=== PATIENT | male | born 2000 | race Caucasian/White ===

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

== ENCOUNTER 2022-01-12 23:07 | Emergency (ER) | payer OTHER, MEDICAID, SELFPAY ==
[2022-01-12 23:14] VITALS: BP 117/67; PULSE 123; RESP 20; TEMP 37.2; O2SAT 97; BMI 26.6
[2022-01-12 23:25] VITALS: PULSE 119; O2SAT 96
[2022-01-12 23:26] VITALS: BP 115/63; PULSE 116; O2SAT 97
[2022-01-12 23:30] VITALS: BP 110/62; PULSE 117; O2SAT 98
[2022-01-13] VITALS: BP 105/63; PULSE 101; O2SAT 96
[2022-01-13 00:30] VITALS: BP 108/62; PULSE 101; O2SAT 96
--- NOTE | 2022-01-13 00:30 | PC.NURSE ---
Resting quietly on stretcher in NAD - no needs voiced - PWD with respirations equal and unlabored bilaterally
[2022-01-13 00:34] LABS: Influenza A - CEPHEID Flu A POSITIVE (NEGATIVE); Influenza B - CEPHEID Flu B NEGATIVE (NEGATIVE); Respiratory Syncytial Virus Negative (Negative)
[2022-01-13 00:40] LABS: COVID-19 CEPHEID 4-PLEX PCR Negative (Negative)
--- NOTE | 2022-01-13 01:05 | ED_ITS ---
HPI - Back Pain/Injury General Chief Complaint: Back Pain/Injury Stated Complaint: back hurts, n/v bodyaches Time Seen by Provider: 01/13/22 00:16 Source: patient History of Present Illness HPI Narrative: Patient is a 21-year-old male transitioning to female presenting today with body aches and some nausea and back pain. Some mild sore throat. No significant cough no headache. Currently afebrile. No abdominal pain. Related Data Previous Rx's Medication Instructions Recorded ondansetron 4 mg disintegrating 4 mg PO Q6H PRN nausea and 01/20/21 tablet vomiting #10 tabs ketorolac 10 mg tablet 10 mg PO Q6H PRN pain #14 tabs 01/21/21 ondansetron HCl 4 mg tablet 4 mg PO Q8H PRN nausea and 01/21/21 (Zofran) vomiting #20 tabs Allergies Allergy/AdvReac Type Severity Reaction Status Date / Time No Known Drug Allergies Allergy Verified 01/12/19 15:37 Review of Systems Review of Systems Narrative: GENERAL: See HPI HEENT: Denies throat pain RESPIRATORY: Denies dyspnea, cough, wheezing CARDIOVASCULAR: Denies chest pain, palpitations GASTROINTESTINAL: Denies nausea, vomiting MUSCULOSKELETAL: See HPI SKIN: No rash, no laceration, no pruritus NEUROLOGIC: Denies weakness, dizziness, headache, numbness 8 point review of systems is negative except for those stated above and HPI Patient History Social History Smoking Status: Never smoker Smoking Status: Never smoker alcohol intake frequency: a few times a week Substance Use Type: does not use Exam Initial Vital Signs Initial Vital Signs: Vital Signs Temperature 99 F 01/12/22 23:14 Pulse Rate 123 H 01/12/22 23:14 Respiratory Rate 20 01/12/22 23:14 Blood Pressure 117/67 01/12/22 23:14 Pulse Oximetry 97 01/12/22 23:14 Oxygen Delivery Method 01/12/22 23:14 GENERAL: Alert well-appearing 21-year-old HEENT: Head atraumatic,EOMI, pupils reactive, face symmetric, negative Kernig and Brudzinski, no meningeal signs CARDIOVASCULAR: Regular rate and rhythm without murmurs, rubs or gallops. RESPIRATORY: Breath sounds equal bilaterally, no wheezes rales or rhonchi. ABDOMEN: Soft, nontender. Normoactive bowel sounds all 4 quadrants. No guarding or rebound. EXTREMITIES: Normal range of motion, no clubbing or edema. Neurovascularly intact NEUROLOGICAL: Alert and oriented x4. SKIN: Warm, dry, no laceration, no petechiae, no rashes or lesions. Course Vital Signs Vital signs: Vital Signs - 8 hr 01/12/22 23:14 01/12/22 23:25 01/12/22 23:26 Temperature 99 F Pulse Rate 123 H 119 H Respiratory Rate 20 Blood Pressure 117/67 115/63 Pulse Oximetry 97 96 Oxygen Delivery Method Room Air 01/12/22 23:26 01/12/22 23:30 01/12/22 23:30 Temperature Pulse Rate 116 H 117 H Respiratory Rate Blood Pressure 110/62 Pulse Oximetry 97 98 Oxygen Delivery Method 01/13/22 00:00 01/13/22 00:00 01/13/22 00:30 Temperature Pulse Rate 101 H Respiratory Rate Blood Pressure 105/63 108/62 Pulse Oximetry 96 Oxygen Delivery Method 01/13/22 00:30 Temperature Pulse Rate 101 H Respiratory Rate Blood Pressure Pulse Oximetry 96 Oxygen Delivery Method MDM - Back Pain/Injury Lab Data Labs: Lab Results 01/12/22 Range/Units 11:25 SARS-CoV-2 (PCR) Negative (Negative) Influenza A (RT-PCR) Flu a positive H (NEGATIVE) Influenza B (RT-PCR) Flu b negative (NEGATIVE) RSV (PCR) Negative (Negative) MDM Narrative Medical decision making narrative: Patient overall appears well. No specific spine tenderness or meningeal signs. Diskitis is considered however unlikely at this time. I think body aches are likely related to influenza. Afebrile here in the ED mild tachycardia initially but improved without any sort of intervention. At this time recommend supporti ve care only and return if things are getting worse. Discharge Plan Departure Patient Disposition: Home Clinical Impression: Influenza A Activity Restrictions/Additional Instructions: *You have been diagnosed with influenza a *What to do: Stay hydrated with fluids. Treat fever if needed. *Continue to take medications as directed Motrin 600 mg every 6 hours if needed for [id number] pain/fever Tylenol 1000 mg every 6 hours if needed for [id number] pain/fever *Follow up with your primary care provider in 2-3 days or call [phone] *Return to ER if you should have increasing shortness of breath fever not controlled not drinking fluids or any new, worsening or concerning symptoms Prescriptions: No Action ondansetron 4 mg tablet,disintegrating 4 mg PO Q6H PRN (Reason: nausea and vomiting) Qty: 10 0RF ondansetron HCl [Zofran] 4 mg tablet 4 mg PO Q8H PRN (Reason: nausea and vomiting) Qty: 20 0RF ketorolac 10 mg tablet 10 mg PO Q6H PRN (Reason: pain) Qty: 14 0RF Referrals: Leti Cullen ND [Primary Care Provider] - Visit Report Forms: Patient Portal/API
== END 2022-01-13 01:21 | disposition home or self-care (01) ==
PROVIDERS: Emergency Provider Emergency Medicine; PCP Naturopath
DX: J10.1 Influenza due to other identified influenza virus with other respiratory manifestations (principal); R11.0 Nausea; Z20.822 Contact with and (suspected) exposure to COVID-19
CPT/HCPCS: 0241U; 99282

== ENCOUNTER → 2022-02-14 14:18 | Outpatient (CLI) | payer OTHER, MEDICAID, SELFPAY ==
[2022-02-14 15:39] LABS: Alanine Aminotransferase 117 IU/L (<50); Albumin 4.8 g/dL (3.5-5.0); Albumin Globulin Ratio 1.3 (1.0-2.8); Alkaline Phosphatase 74 U/L (38-126); Aspartate Aminotransferase 52 IU/L (17-59); BUN Creatinine Ratio 21.3 (6-22); Bilirubin Total 1.3 mg/dL (0.2-1.3); Blood Urea Nitrogen 17 mg/dL (9-20); Calcium 9.2 mg/dL (8.4-10.2); Carbon Dioxide 29 mmol/L (22-32); Chloride 98 mmol/L (98-107); Cholesterol 197 mg/dL (140-199); Estimated Glomerular Filt Rate > 60 mL/min (>60); Globulin 3.6 g/dL (1.7-4.1); Glucose 96 mg/dL (70-100); HDL Cholesterol 59 mg/dL (40-60); HEMOLYSIS < 15 (0-50); LDL Cholesterol Calculated 123 mg/dL (<100); Sodium 137 mmol/L (137-145); Total Protein 8.4 g/dL (6.3-8.2); Triglycerides 76 mg/dL (35-150)
[2022-02-14 15:55] LABS: Prolactin 12.4 ng/mL (3.7-17.9)
[2022-02-14 17:47] LABS: Estradiol, Total 294.6 pg/mL
[2022-02-21 09:27] LABS: Testosterone Free 2.66 ng/dL (5.00-21.00); Testosterone Total 147.6 ng/dL (264.0-916.0)
== END ==
PROVIDERS: PCP Naturopath; Referring Provider Naturopath; Visit Provider Naturopath
DX: F64.0 Transsexualism (principal)
CPT/HCPCS: 36415; 80053; 80061; 82670; 84146; 84402; 84403

== ENCOUNTER → 2022-05-22 16:05 | Outpatient (CLI) | payer OTHER, MEDICAID, SELFPAY ==
[2022-05-22 17:43] LABS: Alanine Aminotransferase 38 IU/L (<50); Albumin 4.7 g/dL (3.5-5.0); Albumin Globulin Ratio 1.4 (1.0-2.8); Alkaline Phosphatase 67 U/L (38-126); Aspartate Aminotransferase 30 IU/L (17-59); Blood Urea Nitrogen 12 mg/dL (9-20); Calcium 9.5 mg/dL (8.4-10.2); Carbon Dioxide 29 mmol/L (22-32); Chloride 98 mmol/L (98-107); Cholesterol 199 mg/dL (140-199); Estimated Glomerular Filt Rate > 60 mL/min (>60); Globulin 3.4 g/dL (1.7-4.1); Glucose 93 mg/dL (70-100); HDL Cholesterol 65 mg/dL (40-60); HEMOLYSIS < 15 (0-50); LDL Cholesterol Calculated 115 mg/dL (<100); Sodium 136 mmol/L (137-145); Total Protein 8.1 g/dL (6.3-8.2); Triglycerides 95 mg/dL (35-150)
[2022-05-22 17:59] LABS: Prolactin 24.2 ng/mL (3.7-17.9)
[2022-06-04 14:13] LABS: Percent Free Testosterone 0.81 % (1.50-4.20); Testosterone Free 0.09 ng/dL (5.00-21.00)
[2022-06-06 07:58] LABS: Estradiol, Sensitive 124.8
== END ==
PROVIDERS: PCP Naturopath; Referring Provider Naturopath; Visit Provider Naturopath
DX: F64.0 Transsexualism (principal)
CPT/HCPCS: 36415; 80053; 80061; 82670; 84146; 84402; 84403

== ENCOUNTER 2022-08-03 20:36 | Emergency (ER) | payer OTHER, MEDICAID, SELFPAY ==
[2022-08-03 20:55] VITALS: BP 131/73; PULSE 99; RESP 18; TEMP 36.2; O2SAT 99; BMI 27.3
[2022-08-03] MEDS: ONDANSETRON 4 MG/2 ML INJ IV ×2 (21:21→23:59)
[2022-08-03 21:31] LABS: Add Manual Diff / Slide Review NO; Basophils Absolute Auto 0 /uL (0-100); Basophils Percent Auto 0.2 % (0-2); Eosinophils Absolute Auto 300 /uL (0-450); Eosinophils Percent Auto 1.9 % (2-4); Hematocrit 47.1 % (41-53); Hemoglobin 16.8 g/dL (13.5-17.5); Lymphocytes Absolute Auto 1400 /uL (1100-4500); Lymphocytes Percent Auto 9.4 % (25-40); Mean Corpuscular HGB Conc 35.6 % (30-36); Mean Corpuscular Hemoglobin 30.5 PG (26-34); Mean Corpuscular Volume 85.7 fL (80-100); Monocytes Absolute Auto 1200 /uL (0-900); Monocytes Percent Auto 8.2 % (3-14); Neutrophils Absolute Auto 11800 /uL (1500-7000); Neutrophils Percent Auto 80.3 % (50-75); Platelet Count 244 X10^3/uL (150-400); Red Cell Distribution Width 12.5 % (11.6-14.8); White Blood Cell Count 14.7 X10^3/uL (4.5-11.0)
[2022-08-03 21:35] LABS: Alanine Aminotransferase 82 IU/L (<50); Albumin Globulin Ratio 1.2 (1.0-2.8); Alkaline Phosphatase 77 U/L (38-126); Aspartate Aminotransferase 48 IU/L (17-59); BUN Creatinine Ratio 11.7 (6-22); Bilirubin Total 2.5 mg/dL (0.2-1.3); Blood Urea Nitrogen 9 mg/dL (9-20); Calcium 9.7 mg/dL (8.4-10.2); Carbon Dioxide 26 mmol/L (22-32); Chloride 97 mmol/L (98-107); Estimated Glomerular Filt Rate > 60 mL/min (>60); Globulin 4.3 g/dL (1.7-4.1); Glucose 109 mg/dL (70-100); Lipase 43 U/L (23-300); Sodium 136 mmol/L (137-145)
[2022-08-03 21:38] LABS: HEMOLYSIS 117 (0-50)
[2022-08-03 21:39] LABS: Potassium 4.4 mmol/L (3.4-5.1)
[2022-08-03 21:41] LABS: Total Protein 9.3 g/dL (6.3-8.2)
[2022-08-03 22:44] VITALS: BP 127/61; PULSE 88; O2SAT 99
[2022-08-03 23:00] VITALS: PULSE 79; O2SAT 97
[2022-08-03 23:25] LABS: Appearance Urine UA CLEAR; Bilirubin Urine UA 2+ (NEGATIVE); Color Urine UA YELLOW; Glucose Urine UA NEGATIVE (Negative); Ketones Urine UA 3+ (NEGATIVE); Leukocyte Esterase Urine UA NEGATIVE (NEGATIVE); Nitrite Urine UA NEGATIVE (Negative); Occult Blood Urine UA NEGATIVE (Negative); Protein Urine UA TRACE (Negative); Specific Gravity Urine UA >=1.030 (1.000-1.035); pH Urine UA 5.5 (4.5-8.0)
[2022-08-03 23:29] LABS: Ictotest Urine Negative (Negative)
[2022-08-03 23:30] VITALS: BP 113/62; PULSE 82; O2SAT 97
[2022-08-03 23:42] LABS: Bacteria Urine None Seen; Culture Indicated Urine Cult Not Indicated; Mucus Urine 3+ (Negative); RBC Urine None Seen (0-5/HPF); Squamous Epithelial Cell Urine 1-5 /HPF (0-5/HPF); WBC Urine None Seen (0-5/HPF)
--- NOTE | 2022-08-03 23:59 | ED.NAVMDI ---
HPI - Nausea/Vomiting/Diarrhea General Chief complaint: Nausea/Vomiting/Diarrhea Stated complaint: Vomiting Time Seen by Provider: 08/03/22 23:59 Source: patient Mode of arrival: Family Vehicle History of Present Illness HPI Narrative: 22-year-old individual who presents with nausea vomiting diarrhea. The describe decreased appetite over the last 3 weeks without any significant weight loss. Over the last 24 hours there has been increased emesis and mild diarrhea. The come in today because they have not been able to keep anything down and are feeling miserable. They do not describe fevers or chills. There is no chest pain dyspnea or palpitations. No headaches Related Data Previous Rx's Medication Instructions Recorded ondansetron 4 mg disintegrating 4 mg PO Q6H PRN nausea and 01/20/21 tablet vomiting #10 tabs ketorolac 10 mg tablet 10 mg PO Q6H PRN pain #14 tabs 01/21/21 ondansetron HCl 4 mg tablet 4 mg PO Q8H PRN nausea and 01/21/21 (Zofran) vomiting #20 tabs Allergies Allergy/AdvReac Type Severity Reaction Status Date / Time No Known Drug Allergies Allergy Verified 08/03/22 21:00 Review of Systems Review of Systems Narrative: Pertinent positive and negative findings as per HPI Patient History Social History Smoking Status: Current every day smoker Smoking Status: Current every day smoker tobacco type: cigarettes alcohol intake frequency: a few times a week Substance Use Type: marijuana Exam Initial Vital Signs Initial Vital Signs: Vital Signs Temperature 97.1 F L 08/03/22 20:55 Pulse Rate 99 H 08/03/22 20:55 Respiratory Rate 18 08/03/22 20:55 Blood Pressure 131/73 08/03/22 20:55 Pulse Oximetry 99 08/03/22 20:55 Oxygen Delivery Method Room Air 08/03/22 20:55 General: Healthy appearing, in no acute distress. Able to give a complete and coherent history. Well-nourished well-developed HEENT: Moist mucous Neck: No JVD, supple Respiratory: Lungs are clear to auscultation, no wheezing no rales no rhonchi. Full and symmetrical air movement Cardiac: Regular rate and rhythm no murmurs no bruits Abdomen: Soft, mild epigastric tenderness without rebound or guarding, good bowel tones, no flank pain Skin: Warm and dry, no rashes Neurologic: Grossly neurologically intact with no obvious asymmetries or abnormalities Extremities: No trauma, well perfused Psych: Cooperative, appropriate insight and affect Course Orders Ordered: ED Orders 08/03/22 21:18 Complete Blood Count AUTO DIFF Stat Comprehensive Metabolic Panel Stat Lipase Stat 08/03/22 22:44 Ictotest Urine Stat UA Complete [Urinalysis and Microscopic] Stat Ondansetron HCl (Ondansetron 4 Mg Odt) 4 mg SL NOW PRN PRN Reason: Nausea And Vomiting Ondansetron HCl (Ondansetron 4 Mg/2 Ml Inj) 4 mg IV NOW PRN PRN Reason: Nausea And Vomiting Last Admin: 08/03/22 23:59 Dose: 4 mg Documented By: Admin: 08/03/22 21:21 Dose: 4 mg Documented By: Discontinued Medications Sodium Chloride (Normal Saline 0.9%) 1,000 mls @ 1,000 mls/hr IV BOLUS ONE Stop: 08/04/22 01:29 Last Infusion: 08/04/22 01:19 Dose: 0 mls/hr Documented By: Admin: 08/04/22 00:34 Dose: 1,000 mls/hr Documented By: Ketorolac Tromethamine (Ketorolac 30 Mg/Ml Vial) 15 mg IV NOW ONE Stop: 08/04/22 00:31 Last Admin: 08/04/22 00:34 Dose: 15 mg Documented By: Ondansetron HCl (Ondansetron 4 Mg Odt) 4 mg PO NOW PRN PRN Reason: Nausea And Vomiting Vital Signs Vital signs: Vital Signs - 8 hr 08/03/22 20:55 08/03/22 22:44 08/03/22 22:44 Temperature 97.1 F L Pulse Rate 99 H 88 Respiratory Rate 18 Blood Pressure 131/73 127/61 Pulse Oximetry 99 99 Oxygen Delivery Method Room Air 08/03/22 23:00 08/03/22 23:30 08/03/22 23:30 Temperature Pulse Rate 79 82 Respiratory Rate Blood Pressure 113/62 Pulse Oximetry 97 97 Oxygen Delivery Method 08/04/22 00:00 08/04/22 00:00 08/04/22 00:30 Temperature Pulse Rate 90 Respiratory Rate Blood Pressure 117/69 111/74 Pulse Oximetry 98 Oxygen Delivery Method 08/04/22 00:30 08/04/22 01:00 08/04/22 01:00 Temperature Pulse Rate 78 85 Respiratory Rate Blood Pressure 109/64 Pulse Oximetry 98 100 Oxygen Delivery Method MDM - Nausea/Vomiting/Diarrhea Lab Data 08/03/22 21:18 08/03/22 21:18 Labs: Lab Results 08/03/22 08/03/22 08/03/22 Range/Units 21:18 21:18 22:44 WBC 14.7 H (4.5-11.0) X10^3/uL RBC 5.50 (4.5-5.9) X10^6/uL Hgb 16.8 (13.5-17.5) g/dL Hct 47.1 (41-53) % MCV 85.7 (80-100) fL MCH 30.5 (26-34) PG MCHC 35.6 (30-36) % RDW 12.5 (11.6-14.8) % Plt Count 244 (150-400) X10^3/uL Neut % (Auto) 80.3 H (50-75) % Lymph % (Auto) 9.4 L (25-40) % [place] % (Auto) 8.2 (3-14) % Eos % (Auto) 1.9 L (2-4) % Baso % (Auto) 0.2 (0-2) % Neut # (Auto) 29141 H (9542-3417) /uL Lymph # (Auto) 1400 (1683-6438) /uL [place] # (Auto) 1200 H (0-900) /uL Eos # (Auto) 300 (0-450) /uL Baso # (Auto) 0 (0-100) /uL Sodium 136 L (137-145) mmol/L Potassium 4.4 (3.4-5.1) mmol/L Chloride 97 L (98-107) mmol/L Carbon Dioxide 26 (22-32) mmol/L BUN 9 (9-20) mg/dL Creatinine 0.77 (0.66-1.25) mg/dL Estimated GFR > 60 (>60) mL/min BUN/Creatinine Ratio 11.7 (6-22) Glucose 109 H (70-100) mg/dL Calcium 9.7 (8.4-10.2) mg/dL Total Bilirubin 2.5 H (0.2-1.3) mg/dL AST 48 (17-59) IU/L ALT 82 H (<50) IU/L Alkaline Phosphatase 77 (38-126) U/L Total Protein 9.3 H (6.3-8.2) g/dL Albumin 5.0 (3.5-5.0) g/dL Globulin 4.3 H (1.7-4.1) g/dL Albumin/Globulin Ratio 1.2 (1.0-2.8) Lipase 43 (23-300) U/L Urine Color Urine Appearance Urine pH (4.5-8.0) Ur Specific [place] (1.000-1.035) Urine Protein (Negative) Urine Glucose (UA) (Negative) g/dL Urine Ketones (NEGATIVE) Urine Occult Blood (Negative) Urine Nitrate (Negative) Urine Bilirubin (NEGATIVE) Ur Bilirubin Confirm Negative (Negative) Urine Urobilinogen (0.2) E.U./dL Ur Leukocyte Esterase (NEGATIVE) Urine RBC (0-5/HPF) Urine WBC (0-5/HPF) Ur Squamous Epith Cells (0-5/HPF) Urine Bacteria (None) Urine Mucus (Negative) Ur Culture Indicated? 08/03/22 Range/Units 22:44 WBC (4.5-11.0) X10^3/uL RBC (4.5-5.9) X10^6/uL Hgb (13.5-17.5) g/dL Hct (41-53) % MCV (80-100) fL MCH (26-34) PG MCHC (30-36) % RDW (11.6-14.8) % Plt Count (150-400) X10^3/uL Neut % (Auto) (50-75) % Lymph % (Auto) (25-40) % [place] % (Auto) (3-14) % Eos % (Auto) (2-4) % Baso % (Auto) (0-2) % Neut # (Auto) (5174-5916) /uL Lymph # (Auto) (7504-8498) /uL [place] # (Auto) (0-900) /uL Eos # (Auto) (0-450) /uL Baso # (Auto) (0-100) /uL Sodium (137-145) mmol/L Potassium (3.4-5.1) mmol/L Chloride (98-107) mmol/L Carbon Dioxide (22-32) mmol/L BUN (9-20) mg/dL Creatinine (0.66-1.25) mg/dL Estimated GFR (>60) mL/min BUN/Creatinine Ratio (6-22) Glucose (70-100) mg/dL Calcium (8.4-10.2) mg/dL Total Bilirubin (0.2-1.3) mg/dL AST (17-59) IU/L ALT (<50) IU/L Alkaline Phosphatase (38-126) U/L Total Protein (6.3-8.2) g/dL Albumin (3.5-5.0) g/dL Globulin (1.7-4.1) g/dL Albumin/Globulin Ratio (1.0-2.8) Lipase (23-300) U/L Urine Color Yellow Urine Appearance Clear Urine pH 5.5 (4.5-8.0) Ur Specific [place] >=1.030 H (1.000-1.035) Urine Protein Trace H (Negative) Urine Glucose (UA) Negative (Negative) g/dL Urine Ketones 3+ H (NEGATIVE) Urine Occult Blood Negative (Negative) Urine Nitrate Negative (Negative) Urine Bilirubin 2+ H (NEGATIVE) Ur Bilirubin Confirm (Negative) Urine Urobilinogen 1.0 (0.2) E.U./dL Ur Leukocyte Esterase Negative (NEGATIVE) Urine RBC None seen (0-5/HPF) Urine WBC None seen (0-5/HPF) Ur Squamous Epith Cells 1-5 /hpf (0-5/HPF) Urine Bacteria None seen (None) Urine Mucus 3+ H (Negative) Ur Culture Indicated? Cult not indicated Urine Dip Bedside Urine Glucose Negative Bedside Urine Bilirubin + 1 Bedside Urine Ketone +++ 80 Urine Specific [place] 1.030 Bedside Urine Occult Blood - Negative Bedside Urine pH 6.0 Bedside Urine Protein +/- 15 Bedside Urine Urobilinogen - Negative Bedside Urine Nitrite - Negative Bedside Urine Leukocytes +/- 15 Esterase MDM Narrative Medical decision making narrative: CC: Nausea vomiting and diarrhea, this is an acute issue uncertain prognosis Complicating co-morbidities: None Data collected from: patient, Differential considered: Viral syndrome, bacterial syndrome, appendicitis, bowel obstruction Exam documented above, pertinent findings include: Mild epigastric tenderness otherwise exam is entirely benign Lab Test results independently reviewed as above. Pertinent findings: Mild leukocytosis similar to prior presentations. Slight left shift. No significant anemia Chemistries show slightly elevated bilirubin AST total protein. Normal electrolytes and renal function Treatments: IV fluid, Toradol and ondansetron Discussion: 22-year-old individual with 3 days of significant nausea vomiting and diarrhea. No significant renal dysfunction. Bilirubin is slightly elevated however remainder of LFTs are fairly reassuring. Most likely explanation is a viral etiology with dehydration. They responded nicely to fluids Zofran and Toradol. On repeat examination there is no sign of acute surgical abdomen and they are ready for discharge home. All labs and studies reviewed questions are answered. Prepack of Zofran will be given along with instructions on brat diet and maintaining hydration. Questions answered and they are safe for discharge home Discharge Plan Departure Patient Disposition: Home Clinical Impression: Abdominal pain, vomiting, and diarrhea Instructions: DI for Nausea -- Adult Activity Restrictions/Additional Instructions: Thank you for coming in today I suspect that the vomiting and diarrhea is related to some type of viral syndrome. Your blood work was reassuring. Your responded nicely to fluids and nausea medicine. I am going to send you home with some ondansetron/Zofran that you can use for nausea over the next day or 2 if you continue to have problems. Make sure that you are keeping yourself hydrated and allow yourself simple digestible foods for the next day or 2 If you find that you are getting worse or develop any new symptoms, please feel free to return to the emergency department for further evaluation. Prescriptions: No Action ondansetron 4 mg tablet,disintegrating 4 mg PO Q6H PRN (Reason: nausea and vomiting) Qty: 10 0RF ondansetron HCl [Zofran] 4 mg tablet 4 mg PO Q8H PRN (Reason: nausea and vomiting) Qty: 20 0RF ketorolac 10 mg tablet 10 mg PO Q6H PRN (Reason: pain) Qty: 14 0RF Referrals: Leti Cullen ND [Primary Care Provider] - Stand Alone Forms: Patient Portal/API
[2022-08-04] VITALS: BP 117/69; PULSE 90; O2SAT 98
[2022-08-04 00:30] VITALS: BP 111/74; PULSE 78; O2SAT 98
[2022-08-04] MEDS: KETOROLAC 30 MG/ML VIAL 15 MG IV (00:34)
[2022-08-04] MEDS: SODIUM CHLORIDE 0.9% 1,000 ML 1000 ML IV (00:34)
[2022-08-04 01:00] VITALS: BP 109/64; PULSE 85; O2SAT 100
[2022-08-04] MEDS: ONDANSETRON 4 MG ODT PREPACK 1 BOTTLE MISC (03:00)
[2022-08-04 03:02] VITALS: BP 114/63; PULSE 83; RESP 16; O2SAT 96
== END 2022-08-04 03:03 | disposition home or self-care (01) ==
PROVIDERS: Emergency Provider Emergency Medicine; PCP Naturopath
DX: R10.9 Unspecified abdominal pain (principal); R11.2 Nausea with vomiting, unspecified; R19.7 Diarrhea, unspecified
CPT/HCPCS: 36415; 80053; 81001; 81003; 83690; 85025; 96361; 96374; 96375; 96376; 99284; J1885; J2405

== ENCOUNTER → 2022-09-25 16:26 | Outpatient (CLI) | payer OTHER, MEDICAID, SELFPAY ==
[2022-09-25 18:15] LABS: Alanine Aminotransferase 68 IU/L (<50); Albumin 4.8 g/dL (3.5-5.0); Albumin Globulin Ratio 1.4 (1.0-2.8); Alkaline Phosphatase 92 U/L (38-126); Aspartate Aminotransferase 37 IU/L (17-59); BUN Creatinine Ratio 11.5 (6-22); Bilirubin Total 1.6 mg/dL (0.2-1.3); Blood Urea Nitrogen 9 mg/dL (9-20); Calcium 9.4 mg/dL (8.4-10.2); Carbon Dioxide 27 mmol/L (22-32); Chloride 99 mmol/L (98-107); Cholesterol 214 mg/dL (140-199); Estimated Glomerular Filt Rate > 60 mL/min (>60); Globulin 3.5 g/dL (1.7-4.1); Glucose 87 mg/dL (70-100); HDL Cholesterol 54 mg/dL (40-60); HEMOLYSIS < 15 (0-50); LDL Cholesterol Calculated 143 mg/dL (<100); Potassium 3.6 mmol/L (3.4-5.1); Sodium 137 mmol/L (137-145); Total Protein 8.3 g/dL (6.3-8.2); Triglycerides 86 mg/dL (35-150)
[2022-10-02 11:16] LABS: Percent Free Testosterone 2.47 % (1.50-4.20); Testosterone Free 0.17 ng/dL (5.00-21.00); Testosterone Total 6.9 ng/dL (264.0-916.0)
== END ==
PROVIDERS: PCP Naturopath; Referring Provider Naturopath; Visit Provider Naturopath
DX: F64.9 Gender identity disorder, unspecified (principal)
CPT/HCPCS: 36415; 80053; 80061; 82670; 84146; 84402; 84403

== ENCOUNTER → 2022-12-31 11:35 | Outpatient (CLI) | payer OTHER, MEDICAID, SELFPAY ==
[2022-12-31 12:53] LABS: Alanine Aminotransferase 33 IU/L (<50); Albumin 4.8 g/dL (3.5-5.0); Albumin Globulin Ratio 1.4 (1.0-2.8); Alkaline Phosphatase 65 U/L (38-126); Aspartate Aminotransferase 24 IU/L (17-59); BUN Creatinine Ratio 19.4 (6-22); Bilirubin Total 1.1 mg/dL (0.2-1.3); Blood Urea Nitrogen 14 mg/dL (9-20); Calcium 10.7 mg/dL (8.4-10.2); Carbon Dioxide 28 mmol/L (22-32); Chloride 97 mmol/L (98-107); Cholesterol 181 mg/dL (140-199); Estimated Glomerular Filt Rate > 60 mL/min (>60); Globulin 3.4 g/dL (1.7-4.1); Glucose 94 mg/dL (70-100); HDL Cholesterol 57 mg/dL (40-60); HEMOLYSIS < 15 (0-50); LDL Cholesterol Calculated 112 mg/dL (<100); Potassium 5.1 mmol/L (3.4-5.1); Sodium 137 mmol/L (137-145); Total Protein 8.2 g/dL (6.3-8.2); Triglycerides 58 mg/dL (35-150)
== END ==
PROVIDERS: PCP Naturopath; Referring Provider Naturopath; Visit Provider Naturopath
DX: F64.9 Gender identity disorder, unspecified (principal)
CPT/HCPCS: 36415; 80053; 80061; 82670

== ENCOUNTER → 2023-03-24 17:40 | Outpatient (CLI) | payer OTHER, MEDICAID, SELFPAY ==
[2023-03-24 19:01] LABS: Estradiol, Total 478.8 pg/mL
== END ==
PROVIDERS: PCP Naturopath; Referring Provider Naturopath; Visit Provider Naturopath
DX: F64.9 Gender identity disorder, unspecified (principal)
CPT/HCPCS: 36415; 82670

== ENCOUNTER → 2023-05-14 15:36 | Outpatient (CLI) | payer OTHER, MEDICAID, SELFPAY ==
[2023-05-14 22:45] LABS: Estradiol, Total 114.6 pg/mL
== END ==
PROVIDERS: PCP Naturopath; Referring Provider Naturopath; Visit Provider Naturopath
DX: F64.9 Gender identity disorder, unspecified (principal)
CPT/HCPCS: 36415; 82670

== ENCOUNTER 2023-08-25 02:12 | Emergency (ER) | payer SELFPAY ==
[2023-08-25 02:19] VITALS: BP 109/66; PULSE 108; RESP 16; TEMP 37.1; O2SAT 97; BMI 25.0
--- NOTE | 2023-08-25 02:19 | ED.UPPEXIN ---
HPI - Extremity Injury (Upper) General Chief Complaint: Wound/Laceration Stated Complaint: cut left hand finger Time Seen by Provider: 08/25/23 02:16 History of Present Illness HPI narrative: 23-year-old male sustained small cut to left hand ring finger, subsequently having migratory muscle aches, with seemed to be concerned about tetanus. Last tetanus shot per phone records recorded 11/2013, due for update, here for tetanus update as well. No redness or swelling to the affected finger. No other injuries. Denies fevers or chills. Related Data Previous Rx's Medication Instructions Recorded ondansetron 4 mg disintegrating 4 mg PO Q6H PRN nausea and 01/20/21 tablet vomiting #10 tabs ketorolac 10 mg tablet 10 mg PO Q6H PRN pain #14 tabs 01/21/21 ondansetron HCl 4 mg tablet 4 mg PO Q8H PRN nausea and 01/21/21 (Zofran) vomiting #20 tabs Allergies Allergy/AdvReac Type Severity Reaction Status Date / Time No Known Drug Allergies Allergy Verified 08/03/22 21:00 Review of Systems Review of Systems Narrative: See HPI Patient History Social History Smoking Status: Current every day smoker Smoking Status: Current every day smoker tobacco type: cigarettes alcohol intake frequency: a few times a week Substance Use Type: marijuana Exam Narrative Exam Narrative: GENERAL: Well-developed patient, in mild distress. HEAD: Atraumatic. Normocephalic. EYES: Pupils equal round and reactive. Extraocular motions intact. No scleral icterus. No injection or drainage. ENT: Nose without bleeding, purulent drainage. Throat without erythema, tonsillar hypertrophy or exudate. Airway patent. NECK: Trachea midline. Non tender CARDIOVASCULAR: Regular rate and rhythm without murmurs, gallops, or rubs. RESPIRATORY: Clear to auscultation. Breath sounds equal bilaterally. No wheezes, rales, or rhonchi. GASTROINTESTINAL: Abdomen soft, non-tender, nondistended. EXTREMITIES: Left 4th finger with medical middle phalynx small superficial nonsuturable linear laceration 1 cm length, without erythema or swelling, normal range of motion IP joints and MCP. No edema or joint tenderness. BACK: Nontender without deformity or crepitance. No flank tenderness. NEURO: AOx3. SKIN: No rash or erythema of visible areas Initial Vital Signs Initial Vital Signs: Vital Signs Temperature 98.7 F 08/25/23 02:19 Pulse Rate 108 H 08/25/23 02:19 Respiratory Rate 16 08/25/23 02:19 Blood Pressure 109/66 08/25/23 02:19 Pulse Oximetry 97 08/25/23 02:19 Oxygen Delivery Method Room Air 08/25/23 02:19 Course Orders Ordered: Discontinued Medications Bacitracin (Bacitracin 28 Gm Oint) 1 applic TOP NOW ONE Stop: 08/25/23 02:38 Last Admin: 08/25/23 02:41 Dose: Not Given Bacitracin (Bacitracin Oint 0.9 Gm Pckt) 1 applic TOP NOW ONE Stop: 08/25/23 02:43 Last Admin: 08/25/23 02:44 Dose: 1 applic Diphtheria/Tetanus/Acell Pertussis (Tet,Diph,Pertuss(Acell),Vac/Pf 0.5 Ml Syringe) 0.5 ml IM .ONCE ONE Stop: 08/25/23 02:33 Last Admin: 08/25/23 02:40 Dose: 0.5 ml Vital Signs Vital signs: Vital Signs - 8 hr 08/25/23 02:19 Temperature 98.7 F Pulse Rate 108 H Respiratory Rate 16 Blood Pressure 109/66 Pulse Oximetry 97 Oxygen Delivery Method Room Air MDM - Extremity Injury (Upper) MDM Narrative Medical decision making narrative: 23-year-old male had concerns about tetanus illness, small left ring finger laceration nonsuturable sustained 4 days ago, no redness or obvious cellulitis on exam, migratory muscle aches not consistent with tetanus illness, however patient due for tetanus update, IM Tdap given. Antibiotic ointment to superficial laceration. Return precautions discussed, discharged home Discharge Plan Departure Patient Disposition: Home Clinical Impression: Finger laceration, Tetanus toxoid inoculation, Muscular aches Activity Restrictions/Additional Instructions: Small nonsuturable laceration to left 4th finger 4 days ago, without redness or swelling. Migratory muscle aches, clinical concern for tetanus illness. Symptoms would be atypical for tetanus syndrome. Per phone records you would be due for a tetanus update however, as you had had your last tetanus shot November 2013. This is usually given every 10 years for adults in the [place]. For any tetanus prone injury he is also given if the tetanus shot had been more than 5 years prior to injury. Tdap tetanus (Adacel) product vaccination was given, which also is protective against pertussis illness. Use topical antibiotic over the skin wound, though it seems to be healing pretty well 4 days out from injury at this time. Recheck wound if any swelling or redness. Prescriptions: No Action ondansetron 4 mg tablet,disintegrating 4 mg PO Q6H PRN (Reason: nausea and vomiting) Qty: 10 0RF ondansetron HCl [Zofran] 4 mg tablet 4 mg PO Q8H PRN (Reason: nausea and vomiting) Qty: 20 0RF ketorolac 10 mg tablet 10 mg PO Q6H PRN (Reason: pain) Qty: 14 0RF Referrals: Leti Cullen [place] [Primary Care Provider] - Stand Alone Forms: Patient Portal/API
[2023-08-25] MEDS: TET,DIPH,PERTUSS(ACELL),VAC/PF 0.5 ML SYRINGE IM (02:40)
[2023-08-25] MEDS: BACITRACIN OINT 0.9 GM PCKT 1 APPLIC TOP (02:44)
== END 2023-08-25 02:55 | disposition home or self-care (01) ==
PROVIDERS: Emergency Provider Emergency Medicine; PCP Naturopath
DX: S61.215A Laceration without foreign body of left ring finger without damage to nail, initial encounter (principal); M79.10 Myalgia, unspecified site; X58.XXXA Exposure to other specified factors, initial encounter; Z23 Encounter for immunization
CPT/HCPCS: 90471; 99283; 90715

== ENCOUNTER 2024-07-02 12:59 | Emergency (ER) | payer MEDICAID, SELFPAY ==
[2024-07-02 13:12] VITALS: BP 132/70; PULSE 102; RESP 18; TEMP 36.6; O2SAT 97; BMI 28.1
--- NOTE | 2024-07-02 13:19 | ED.URI ---
HPI - URI/Sore Throat General Chief Complaint: Upper Respiratory Symptoms Stated Complaint: Cough, Runny Nose, Throat Pain, Sweats Time Seen by Provider: 07/02/24 13:19 Source: patient, RN notes reviewed and old records reviewed Mode of arrival: Ambulatory Limitations: no limitations History of Present Illness HPI Narrative: 24-year-old male with complaint of runny nose, nonproductive cough, sore throat x2 days and cold sweats. Patient states no fevers that they are aware. Some nasal congestion. No changes to voice. No chest pain, some mild shortness of breath. No nausea or vomiting. No other GI or urinary symptoms. Patient states no daily medications. No known drug allergies. No major surgeries. Patient states no known sick contacts. They present today as they were told by work they have to have a work note. Patient states they have had about 5 days total of symptoms. Related Data Previous Rx's Medication Instructions Recorded ondansetron 4 mg disintegrating 4 mg PO Q6H PRN nausea and 01/20/21 tablet vomiting #10 tabs ketorolac 10 mg tablet 10 mg PO Q6H PRN pain #14 tabs 01/21/21 ondansetron HCl 4 mg tablet 4 mg PO Q8H PRN nausea and 01/21/21 (Zofran) vomiting #20 tabs Allergies Allergy/AdvReac Type Severity Reaction Status Date / Time No Known Drug Allergies Allergy Verified 07/02/24 13:12 Review of Systems Review of Systems ROS Unobtainable: All systems reviewed & are unremarkable except as noted in HPI and below Patient History Social History Smoking Status: Current every day smoker Smoking Status: Current every day smoker tobacco type: cigarettes alcohol intake frequency: a few times a week Exam Narrative Exam Narrative: GEN: well nourished, well appearing, alert and oriented x 3, patient appears to be in mild distress. HEENT: Atraumatic, pupils are equal round reactive to light, extraocular movements are intact, minimal nasal congestion, TMs are clear with no fluid, there is no conjunctival pallor. Throat is erythematous, no tonsillar enlargement, no exudate, no hoarseness or muffled voice. Bilateral cervical lymphadenopathy. HEART: Regular rate and rhythm without murmur, clicks, rubs. LUNGS:Lungs clear to auscultation, no wheezes, rales, crackles, chest moves symmetrically ABD:bowel sounds normal, soft, non-tender, no guarding, rebound, rigidity, no masses noted, no hepatosplenomegaly MSCL: Full range of motion, normal gait NEURO:CN 2-12 intact, sensation normal Initial Vital Signs Initial Vital Signs: Vital Signs Temperature 97.9 F 07/02/24 13:12 Pulse Rate 102 H 07/02/24 13:12 Respiratory Rate 18 07/02/24 13:12 Blood Pressure 132/70 07/02/24 13:12 Pulse Oximetry 97 07/02/24 13:12 Oxygen Delivery Method Room Air 07/02/24 13:12 Course Orders Ordered: ED Orders 07/02/24 13:25 Covid-19 + FLU A/B + RSV - PCR Stat Strep Grp A by PCR Rapid Stat Vital Signs Vital signs: Vital Signs - 8 hr 07/02/24 13:12 07/02/24 14:38 Temperature 97.9 F Pulse Rate 102 H 90 Respiratory Rate 18 19 Blood Pressure 132/70 Pulse Oximetry 97 96 Oxygen Delivery Method Room Air Room Air MDM - URI/Sore Throat Lab Data Labs: Lab Results 07/02/24 Range/Units 13:25 SARS-CoV-2 (PCR) Negative (Negative) Influenza A (RT-PCR) Flu a negative (NEGATIVE) Influenza B (RT-PCR) Flu b negative (NEGATIVE) RSV (PCR) Positive A (Negative) Group A Strep (PCR) Negative (Negative) MDM Narrative Medical decision making narrative: 24-year-old male who presents with complaint of upper respiratory symptoms but does have little bit of sore throat has not erythema but no exudate or tonsillar enlargement does not have some cervical lymphadenopathy. Suspect URI although strep throat is potential. Rapid strep was obtained. Discussed with the patient they would like to obtain a COVID/influenza/RSV. Rapid strep is negative COVID/influenza/RSV is positive. Discharge Plan Departure Patient Disposition: Home Clinical Impression: Respiratory syncytial virus (RSV) Instructions: DI for Respiratory Syncytial Virus -- Adults Activity Restrictions/Additional Instructions: You have tested positive for RSV, this is a viral illness that typically lasts 7-10 days total. Treatments mostly symptomatic. You can take [id number] medications as needed. Acetaminophen and ibuprofen as needed for muscle aches and fevers. Please return if you have new chest pain or shortness of breath, lightheadedness or passing out, persistent vomiting, new swelling of your extremities or any other new or concerning changes. Prescriptions: No Action ondansetron 4 mg tablet,disintegrating 4 mg PO Q6H PRN (Reason: nausea and vomiting) Qty: 10 0RF ondansetron HCl [Zofran] 4 mg tablet 4 mg PO Q8H PRN (Reason: nausea and vomiting) Qty: 20 0RF ketorolac 10 mg tablet 10 mg PO Q6H PRN (Reason: pain) Qty: 14 0RF Referrals: Leti Cullen ND [Primary Care Provider] - Stand Alone Forms: Patient Portal/API/Survey, Work Release Note
[2024-07-02 13:48] LABS: Strep Grp A by PCR Rapid Negative (Negative)
--- NOTE | 2024-07-02 14:16 | PC.NURSE ---
Left ear pain.
[2024-07-02 14:18] LABS: Influenza A - CEPHEID Flu A NEGATIVE (NEGATIVE); Influenza B - CEPHEID Flu B NEGATIVE (NEGATIVE); Respiratory Syncytial Virus POSITIVE (Negative)
[2024-07-02 14:19] LABS: COVID-19 CEPHEID 4-PLEX PCR Negative (Negative)
[2024-07-02 14:38] VITALS: PULSE 90; RESP 19; O2SAT 96
== END 2024-07-02 14:38 | disposition home or self-care (01) ==
PROVIDERS: Emergency Provider Emergency Medicine; PCP Naturopath
DX: B33.8 Other specified viral diseases (principal); B97.4 Respiratory syncytial virus as the cause of diseases classified elsewhere
CPT/HCPCS: 0241U; 87651; 99281; 99282